=== PATIENT | female | born 2000 | race Caucasian/White ===

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

== ENCOUNTER → 2022-06-12 | Outpatient (CLI) | payer BC ==
[~2022-06-12] MED LIST: BACTRIM DS 8001 TAB PO; DEPAKOTE 125MG125 M1 PO; PREDNISONE20 MG PO; VITAMIN D 400400 IU PO
== END ==
LOC: COL.RAD 07:26
DX: R11.0 Nausea (principal); R68.81 Early satiety; R14.0 Abdominal distension (gaseous)
CPT/HCPCS: A9541

== ENCOUNTER 2022-06-16 20:43 | Emergency (ER) | payer BC ==
[~2022-06-16] VITALS: Ht 167.6 cm; Wt 59.1 kg
[~2022-06-16 20:43] MED LIST changes: -BACTRIM DS 8001 TAB PO
[2022-06-16 20:52] VITALS: TEMP 98.8
[2022-06-16 21:32] LABS: BASO % 0.4 % (0.0-2.0); EOS # 0.1 K/mm3 (0.0-0.7); EOS % 1.2 % (0.0-4.0); GRAN # 3.5 K/mm3 (1.4-6.5); GRAN % 69.2 % (42.2-75.2); HEMATOCRIT 38.7 % (35.0-45.0); HEMOGLOBIN 13.5 g/dl (12.0-15.0); LYMPH # 0.8 K/mm3 (1.2-3.4); LYMPH % 15.4 % (20.0-51.0); MEAN CELL VOLUME 90 fl (80.0-95.0); MEAN CORPUSCULAR HEMOGLOBIN 31 pg (26-32); MEAN CORPUSCULAR HGB CONC 35 g/dl (33.0-37.0); MEAN PLATELET VOLUME 8.9 fl (7.4-10.4); MONO # 0.7 K/mm3 (0.1-0.6); MONO % 13.4 % (1.7-9.3); PLATELET COUNT 280 K/mm3 (130-400); RED BLOOD COUNT 4.32 M/mm3 (4.10-5.30); REDCELL DISTRIBUTION WIDTH-CV 11.8 % (11.5-14.5)
[2022-06-16 21:33] LABS: COLLECTION METHOD CLEAN CATCH
[2022-06-16 21:39] LABS: PH 5.5 (5.0-8.5); URINE APPEARANCE Cloudy (CLEAR/HAZY); URINE COLOR Yellow (YELLOW); URINE GLUCOSE Negative (NEGATIVE); URINE KETONE 1+ (NEGATIVE); URINE PROTEIN(semi-quant) 2+ (NEGATIVE)
[2022-06-16 21:40] LABS: URINE BLOOD 2+ (NEGATIVE); URINE NITRATE Negative (NEGATIVE); URINE UROBILINOGEN 0.2 E.U/dL (0.2-1.0)
[2022-06-16 21:42] LABS: MUCOUS Present (NOT PRESENT); SQUAMOUS EPITHELIAL >50 /hpf (0-10); URINE BACTERIA Moderate /hpf (NONE SEEN); URINE RBC 20-50 /hpf (0-2); URINE WBC >50 /hpf (0-2)
[2022-06-16 21:50] LABS: BILIRUBIN,TOTAL 0.3 mg/dL (0.2-1.2); CALCIUM 9.1 mg/dL (8.4-10.2); CREATININE, serum 0.76 mg/dL (0.57-1.11); POTASSIUM 3.4 mmol/L (3.5-4.5)
[2022-06-16] MEDS ORDERED: BACTRIM DS 8001 TAB PO (22:55)
[2022-06-16 23:16] VITALS: BP 128/85; PULSE 93
== END 2022-06-16 23:16 | disposition home or self-care (01) ==
LOC: COL.ER 20:43
PROVIDERS: Emergency Medicine
DX: N30.90 Cystitis, unspecified without hematuria (principal); Z28.311 Partially vaccinated for COVID-19
CPT/HCPCS: Q9967